=== PATIENT | female | born 1960 | race Caucasian/White ===

== ENCOUNTER 2016-03-25 20:37 | Emergency (ER) | payer OTHER ==
[2016-03-25 21:00] VITALS: TEMP 97.7; BMI 30.3
[2016-03-25] MEDS ORDERED: SODIUM CHLORIDE 0.9% 10 ML FLUSH FLUSH PRN (21:22)
[2016-03-25] MEDS ORDERED: NS 1,000 ML IV ONE (21:23)
[2016-03-25] MEDS ORDERED: CEFTRIAXONE 1 GM in D5W 100 ML IV ONE (21:23)
[2016-03-25] MEDS ORDERED: AZITHROMYCIN 500 MG in D5W 250 ML IV ONE (21:24)
[2016-03-25 21:37] LABS: ALLEN'S TEST PASS; BEb 2.4 (+/- 2); TCO2 25.1 MMOL/L (23-27)
[2016-03-25 21:38] LABS: ABG Draw Site Right Radial
--- NOTE | 2016-03-25 21:42 | DIRPT ---
CLINICAL DATA: Subacute onset of cough and congestion. Initial encounter. EXAM: CHEST 2 VIEW COMPARISON: Chest radiograph performed 12/09/2013 FINDINGS: The lungs are well-aerated. Minimal left basilar atelectasis is noted. There is no evidence of pleural effusion or pneumothorax. The heart is normal in size; the mediastinal contour is within normal limits. No acute osseous abnormalities are seen. IMPRESSION: Minimal left basilar atelectasis noted. Lungs otherwise clear. Electronically Signed By: Marcus Zavala M.D. On: 03/25/2016 21:39
[2016-03-25 22:07] LABS: LEUKOCYTES/URINE NEG (NEGATIVE); NITRITE/URINE NEG (NEGATIVE); URINE OCCULT BLOOD TRACE (NEG/TRACE)
[2016-03-25 22:10] LABS: AUTOMATED BASOPHIL 1.7 % (0-2); AUTOMATED EOSINOPHIL 7.7 % (0-5); AUTOMATED LYMPH 39.5 % (17-44); AUTOMATED MONOCYTE 13.8 % (3-10); AUTOMATED NEUTROPHIL 37.3 % (45-76); MPV 9.4 fL (7.4-10.4)
[2016-03-25 22:12] LABS: RBC/URINE 0-2 (0-5)
[2016-03-25 22:17] LABS: PARTIAL THROMB. TIME 25.4 SEC (22-35)
[2016-03-25 22:19] LABS: BLOOD UREA NITROGEN 9 MG/DL (7-17); CALC CORRECTED 9.3 MG/DL (8.4-10.2); CALCIUM 8.9 MG/DL (8.4-10.2); CALCULATED OSMOLALITY 265 MOs/Kg (270-290); CHLORIDE 106 mEq/L (98-107); GLUCOSE 96 MG/DL (70-99); SODIUM LEVEL 138 mEq/L (137-146); TOTAL PROTEIN 6.5 G/DL (6.3-8.2)
[2016-03-25] MEDS ORDERED: METHYLPREDNISOLONE 125 MG/2 ML VIAL IV ONE (22:26)
[2016-03-25] MEDS ORDERED: ONDANSETRON HCL 4 MG/2 ML VIAL IV ONE (22:29)
--- NOTE | 2016-03-25 22:30 | EDPRACDOC ---
- General Information Chief Complaint: Dyspnea/Resp distress Stated Complaint: DX WITH PNEUMONIA FEEL WORSE Time Seen by Provider: 03/25/16 21:11 Information Source: Patient Mode Of Arrival: Car Home Medications: Home Medications Carvedilol [Coreg] 6.25 mg PO BID 12/09/13 Diltiazem HCl [Cardizem Cd] 120 mg PO DAILY #30 cap 12/09/13 Pravastatin Sodium [Pravachol] 20 mg PO HS 12/09/13 Cefdinir 300 mg PO BID #20 capsule 03/25/16 Hydrocodone Bit/Acetaminophen [[place] 5-325 Tablet] 1 each PO Q4H #15 tab Levofloxacin [Levaquin] 750 mg PO QHS 03/25/16 Ondansetron HCl [Zofran] 4 mg PO Q6H PRN #20 tab 03/25/16 Prednisone [Deltasone, Orasone] 2 tabs PO DAILY #20 tab 03/25/16 Allergies/Adverse Reactions: Allergies Allergy/AdvReac Type Severity Reaction Status Date / Time Sulfa (Sulfonamide Allergy Nausea/Vomi Verified 12/09/13 12:09 Antibiotics) ting Tetracyclines Allergy Hives* Verified 12/09/13 12:08 - History of Present Illness Onset: 1 WEEK HPI: PT PRESENTS TODAY WITH COUGH/CONGESTION X 1 WEEK. STATES THAT SHE SEEN HER PCP AND WAS DX WITH PNA, GIVEN LEVAQUIN/PREDNISONE, BUT IS ONLY FEELING WORSE. INCREASING WEAKNESS/FATIGUE. ASSOCIATED NAUSEA. NO OTHER REPORTED S/S. Shortness of Breath: Moderate Relevant History: Reports: Asthma Cough: Reports: Productive, Green Rhinorrhea: Reports: None Ear Symptoms: Reports: None SOB Worsens with: Reports: Exertion, Coughing SOB Improves with: Reports: Rest Recently treated infections:: Reports: Pneumonia Associated Signs and symptoms: Reports: Cough, Fever (SUBJECTIVE), Nasal Symptoms, Nausea, Myalgia ED Past Medical History - History Reviewed Yes Nurses notes reviewed and agree except as marked - Patient Medical History Neurological History: Reports: Cerebrovascular Accident Cardiac History: Reports: Hypertension, Hypercholesterolemia Psychological History: Denies: Depression Surgical History: Denies: Hysterectomy - Social Medical History Smoking Status: Current some day smoker EDM Review of Systems - Review of Systems ROS Negative Except as Marked: Yes All systems reviewed and were negative except as marked Constitutional: Fever, Fatigue, Weakness Eyes: No Symptoms Reported Ears: No Symptoms Reported Throat: No Symptoms Reported Nose: Congestion Respiratory: Cough, Shortness of Breath Cardiovascular: No Symptoms Reported Gastrointestinal: Nausea Genitourinary: No Symptoms Reported Neurological: No Symptoms Reported Musculoskeletal: Back, Chestwall Integumentary: No Symptoms Reported - Physical Exam Constitutional: Alert (Awake), No apparent distress Oriented to: Time, Person, Place Last recorded Vital Signs: Last Vital Signs Temp 97.7 F 03/25/16 20:56 Pulse 80 03/25/16 22:06 Resp 22 03/25/16 22:06 BP 126/63 03/25/16 22:06 Pulse Ox 98 03/25/16 22:06 Oxygen Pulse Oxygen Saturation 98 O2 Device Room Air Oxygen Flow Rate Fraction of Inspired Oxygen ( FIO2) - HEENT Head: Normal Eye Exam: Normal Neck: Normal, Denies Pain, Midline - Respiratory/Cardiovascular Respiratory: Rhonchi, Tachypnea Cardiovascular: Tachycardia - GI Auscultation: Normal Palpation: Normal Tenderness: Non tender - Musculoskeletal Back: Normal Extremities: Normal - Integumentary Skin: Normal Lymphatics: Normal - Neurologic Cerebellar: Normal Mood Description: Normal Thought: Coherent Perception: Normal ED SOB MDM - Results Result Diagrams: 03/25/16 21:50 03/25/16 21:50 Results: WBC 8.6 xk/uL (3.8-10.8) 03/25/16 21:50 RBC 4.70 xM/uL (4.20-5.40) 03/25/16 21:50 Hgb 14.4 g/dL (12.0-16.0) 03/25/16 21:50 Hct 43.4 % (36-47) 03/25/16 21:50 MCV 92 fL (81-99) 03/25/16 21:50 MCH 30.7 pg (27-32) 03/25/16 21:50 MCHC 33.2 g/dl (33-36) 03/25/16 21:50 RDW 14.0 % (11.5-14.5) 03/25/16 21:50 Plt Count 203 xk/uL (130-400) 03/25/16 21:50 MPV 9.4 fL (7.4-10.4) 03/25/16 21:50 Neut % (Auto) 37.3 % (45-76) L 03/25/16 21:50 Lymph % (Auto) 39.5 % (17-44) 03/25/16 21:50 [place] % (Auto) 13.8 % (3-10) H 03/25/16 21:50 Eos % (Auto) 7.7 % (0-5) H 03/25/16 21:50 Baso % (Auto) 1.7 % (0-2) 03/25/16 21:50 Absolute Neuts (auto) 3.18 xk/uL (1.7-8.2) 03/25/16 21:50 Absolute Lymphs (auto) 3.35 xk/uL (0.65-4.75) 03/25/16 21:50 PT 10.6 SEC (9.2-11.2) 03/25/16 21:50 INR 1.0 03/25/16 21:50 APTT 25.4 SEC (22-35) 03/25/16 21:50 Puncture Site Right radial 03/25/16 21:35 pH 7.530 pH UNITS (7.35-7.45) H 03/25/16 21:35 pCO2 29.0 mmHg (35-45) L 03/25/16 21:35 pO2 94.0 mmHg (80-100) 03/25/16 21:35 HCO3 24.2 MMOL/L (22-26) 03/25/16 21:35 Total CO2 25.1 MMOL/L (23-27) 03/25/16 21:35 Base Excess 2.4 (+/- 2) H 03/25/16 21:35 FiO2 % .21 03/25/16 21:35 Specimen Drawn By Baras 03/25/16 21:35 Sodium 138 mEq/L (137-146) 03/25/16 21:50 Potassium 4.0 mEq/L (3.5-5.1) 03/25/16 21:50 Chloride 106 mEq/L (98-107) 03/25/16 21:50 Carbon Dioxide 22 mMOL/L (22-33) 03/25/16 21:50 Anion Gap 14 mEq/L (8-16) 03/25/16 21:50 BUN 9 MG/DL (7-17) 03/25/16 21:50 Creatinine 0.80 MG/DL (0.52-1.04) 03/25/16 21:50 Estimated GFR (MDRD) > 60 mL/min (>=60) 03/25/16 21:50 Glucose 96 MG/DL (70-99) 03/25/16 21:50 Calculated Osmolality 265 MOs/Kg (270-290) L 03/25/16 21:50 Lactic Acid 1.3 mEq/L (0.7-2.1) 03/25/16 21:50 Calcium 8.9 MG/DL (8.4-10.2) 03/25/16 21:50 Corrected Calcium 9.3 MG/DL (8.4-10.2) 03/25/16 21:50 Total Bilirubin 0.9 MG/DL (0.2-1.3) 03/25/16 21:50 AST 26 IU/L (14-36) 03/25/16 21:50 ALT 26 IU/L (9-52) 03/25/16 21:50 Alkaline Phosphatase 64 IU/L (38-126) 03/25/16 21:50 Total Protein 6.5 G/DL (6.3-8.2) 03/25/16 21:50 Albumin 3.6 G/DL (3.5-5.0) 03/25/16 21:50 Urine Color Yellow 03/25/16 21:30 Urine Clarity Hazy 03/25/16 21:30 Urine pH 6.0 (5.0-8.0) 03/25/16 21:30 Ur Specific [place] 1.005 03/25/16 21:30 Urine Protein Trace (NEG/TRACE) 03/25/16 21:30 Urine Glucose (UA) Neg (NEGATIVE) 03/25/16 21:30 Urine Ketones Neg (NEGATIVE) 03/25/16 21:30 Urine Occult Blood Trace (NEG/TRACE) 03/25/16 21:30 Urine Nitrite Neg (NEGATIVE) 03/25/16 21:30 Urine Bilirubin Neg (NEGATIVE) 03/25/16 21:30 Urine Urobilinogen 0.2 MG/DL (0-1) 03/25/16 21:30 Ur Leukocyte Esterase Neg (NEGATIVE) 03/25/16 21:30 Urine RBC 0-2 (0-5) 03/25/16 21:30 Ur Epithelial Cells 3+ 03/25/16 21:30 Urine Mucus Occ (NEG/OCC) 03/25/16 21:30 Lab Results 03/25/16 03/25/16 03/25/16 21:50 21:50 21:50 WBC 8.6 RBC 4.70 Hgb 14.4 Hct 43.4 MCV 92 MCH 30.7 MCHC 33.2 RDW 14.0 Plt Count 203 MPV 9.4 Neut % (Auto) 37.3 L Lymph % (Auto) 39.5 [place] % (Auto) 13.8 H Eos % (Auto) 7.7 H Baso % (Auto) 1.7 Absolute Neuts (auto) 3.18 Absolute Lymphs (auto) 3.35 PT 10.6 INR 1.0 APTT 25.4 Puncture Site pH pCO2 pO2 HCO3 Total CO2 Base Excess FiO2 % Specimen Drawn By Sodium Potassium Chloride Carbon Dioxide Anion Gap BUN Creatinine Estimated GFR (MDRD) Glucose Calculated Osmolality Lactic Acid 1.3 Calcium Corrected Calcium Total Bilirubin AST ALT Alkaline Phosphatase Total Protein Albumin Urine Color Urine Clarity Urine pH Ur Specific [place] Urine Protein Urine Glucose (UA) Urine Ketones Urine Occult Blood Urine Nitrite Urine Bilirubin Urine Urobilinogen Ur Leukocyte Esterase Urine RBC Ur Epithelial Cells Urine Mucus 03/25/16 03/25/16 03/25/16 21:50 21:35 21:30 WBC RBC Hgb Hct MCV MCH MCHC RDW Plt Count MPV Neut % (Auto) Lymph % (Auto) [place] % (Auto) Eos % (Auto) Baso % (Auto) Absolute Neuts (auto) Absolute Lymphs (auto) PT INR APTT Puncture Site Right radial pH 7.530 H pCO2 29.0 L pO2 94.0 HCO3 24.2 Total CO2 25.1 Base Excess 2.4 H FiO2 % .21 Specimen Drawn By Baras Sodium 138 Potassium 4.0 Chloride 106 Carbon Dioxide 22 Anion Gap 14 BUN 9 Creatinine 0.80 Estimated GFR (MDRD) > 60 Glucose 96 Calculated Osmolality 265 L Lactic Acid Calcium 8.9 Corrected Calcium 9.3 Total Bilirubin 0.9 AST 26 ALT 26 Alkaline Phosphatase 64 Total Protein 6.5 Albumin 3.6 Urine Color Yellow Urine Clarity Hazy Urine pH 6.0 Ur Specific [place] 1.005 Urine Protein Trace Urine Glucose (UA) Neg Urine Ketones Neg Urine Occult Blood Trace Urine Nitrite Neg Urine Bilirubin Neg Urine Urobilinogen 0.2 Ur Leukocyte Esterase Neg Urine RBC 0-2 Ur Epithelial Cells 3+ Urine Mucus Occ - EKG EKG #1 EKG Time: 21:42 -: Yes EKG interpreted by me Rate: bpm: 83 [place]: Normal Rhythm: NSR Block: None Hypertrophy: None ST: Normal Comparison: 12/09/13 Decision Time to Discharge: 22:31 - Departure Disposition: Home Condition: Stable Final Diagnosis: Bronchopneumonia Instructions: Community Acquired Pneumonia (ED) Education/Counseling Given To: Patient Education/Counseling Given Regarding: Diagnosis, Treatment, Follow Up Referrals: Kiko Jasso MD [Primary Care Provider] - One Week Prescriptions: Cefdinir 300 mg PO BID #20 capsule Hydrocodone Bit/Acetaminophen [[place] 5-325 Tablet] 1 each PO Q4H #15 tab Ondansetron HCl [Zofran] 4 mg PO Q6H PRN #20 tab PRN Reason: Nausea/Vomiting Prednisone [Deltasone, Orasone] 2 tabs PO DAILY #20 tab Additional Instructions: USE INHALER AT HOME EVERY 4 HOURS, EVEN IF YOU DON'T FEEL THOUGH YOU NEED IT. STOP LEVAQUIN. FOLLOW UP WITH PCP IN 2-3 DAYS IF NEEDED OR FEEL FREE TO RETURN TO ED FOR ANY WORSE/CONCERNING SYMPTOMS.
[2016-03-25] MEDS ORDERED: KETOROLAC TROMETH 30 MG/ML VIAL IV ONE (22:33)
[2016-03-25] MEDS ORDERED: HYDROmorphone 1 MG INJECTION IV ONE (22:33)
[2016-03-26 00:18] VITALS: BP 141/90; PULSE 78
== END 2016-03-26 00:18 | disposition home or self-care (01) ==
LOC: ED 20:37
DX: J18.0 Bronchopneumonia, unspecified organism (principal)
CPT/HCPCS: 36415; 36600; 71020; 80053; 81001; 82803; 83605; 84484; 85025; 85610; 85730; 87040; 87086; 93005; 96361; 96365; 96366; 96375; 99284; J0456; J0696; J1170; J1885; J2405; J2930; J7060; J7070